=== PATIENT | male | born 1945 | race Caucasian/White ===

== ENCOUNTER → 2016-12-11 | Outpatient (CLI) | payer MEDICARE, OTHER ==
[~2016-12-11] MED LIST: ACETAMINOPHEN PO; ACETAMINOPHEN PR; ADULT TUSS100 MG/5 M GT; ALBUTEROL0.83 MG/ML IH; ANALGESIC BALM28 GM TP; ASPIRIN PO; ATIVAN GT; ATIVAN PEG; ATIVAN2 M1 GT; ATIVAN2 M1 PEG; ATIVAN2 M1 PO; AVODART0.5 MG PO; BISACODYL10 MG/SUPP PR; CALCIUM 500 MG1 TAB PO; CALCIUM 5001 TAB PEG; CALCIUM CA500 MG/5 M GT; CARAFATE PO; CARAFATE1 G PEG; CARAFATE1 G PO; CARAFATE1 GM GT; CARAFATE1 GM PO; CARDURA PO; CARDURA1 MG GT; CARDURA1 MG PEG; CARDURA1 MG PO; CENTRUM MU9 MG/15 ML PEG; CENTRUM PEG; CETIRIZINE HCL10 MG PO; CLARITIN10 MG PO; COLACE PO; COUGH SYRU100 MG/5 M PO; DIASTAT ACUDIAL1 KIT PR; DIASTAT10 MG PR; ENEMA133 M1 RC; EPSOM SALT454 GM MC; EUCERIN CREME454 GM TP; FENOFIBRATE48 MG GT; FENOFIBRATE48 MG PEG; FENOFIBRATE48 MG PO; FLUNISOLIDE25 ML; FLUNISOLIDE25 ML NS; FOSAMAX PO; FOSAMAX70 MG/75 M PEG; GABAPENTIN300 M2 GT; GABAPENTIN300 M2 PEG; GABAPENTIN300 MG GT; HEMOCYTE324 MG PEG; HEMOCYTE324 MG PO; HYDROCODON-ACE1 EAC7 PO; HYDROCODONE-APA1 T56 PEG; IMMUNO; IMMUNOTHERAPY SUBQ; IPRAT-ALBUT 0.5-3 ML IH; LAC-HYDRIN 5113 GM TP; LEXAPRO PO; LIDOCAINE PATCH; LORAZEPAM1 MG PO; MAGIC BUTT CR; METHENAMINE HIPP1 GM PEG; MEVACOR10 MG GT; MEVACOR20 M1 PEG; MEVACOR20 M1 PO; MIRALAX255 GM PEG; MONTELUKAST SOD10 MG GT; MULTI-VITAMIN1 TAB PO; MY FAVORITE MU237 ML GT; NASAL SPRAY30 M3; NASAL SPRAY30 M3 NS; NASALIDE INHALE25 ML; NEURONTIN PO; NEURONTIN300 MG PEG; NEURONTIN300 MG PO; NEURONTIN600 MG DOB; NEXIUM20 MG GT; NEXIUM20 MG/PACK GT; NORCO 5/325 TAB1 TAB PEG; NORCO1 TAB 10/3 GT; OCEAN45 ML; OYSTER CALCIUM500 MG PO; PREVACID PO; PRILOSEC PO; PRILOSEC20 MG DOB; PRILOSEC20 MG GT; PROSCAR5 MG PEG; PROVENTIL0.83 MG/ML NEB; RISAMINE OINTM113 GM TP; ROBITUSSIN100 MG/52 PEG; SENNA CONCENTR8.6 MG PEG; SENNA8.8 MG/5 M GT; SENNA8.8 MG/5 M PEG; SINGULAIR PEG; SINGULAIR PO; SUDOGEST30 M1 GT; SUDOGEST30 M1 PEG; THERA-GEL251 ML TP; THERAVITE; TRICOR PEG; TYLENOL325 M1 GT; VICODIN PO; VITAMIN C500 M2 PEG; VITAMIN D1000 UNI1 PEG; VITAMIN D1000 UNIT GT; VITAMIN D31000 UNI1 PEG; VITAMIN D31000 UNIT PEG; ZYRTEC1 MG/M1 PEG; ZYRTEC10 M2 GT; ZYRTEC10 M2 PEG; [UNRECOGNIZED DRUG - OTHER] DOB; [UNRECOGNIZED DRUG - OTHER] GT; [UNRECOGNIZED DRUG - OTHER] GT
--- NOTE | ~2016-12-11 | US136 ---
[facility] A Service of [facility] & [facility] RADIOLOGY TEXT RESULTS PATIENT: VINI BYRNE LOCATION: CNIV : 43 UNIT #: [id number] AGE: [address]: Raf Alaniz MD SEX: M ORDER DR: [id number] [facility] [address] [place], [place] [address] [id number] O MR#: [id number] Acc #: [id number] NAME: VINI BYRNE : 1945 SEX: M STUDY DATE/TIME: 12/11/2016 8:42 UNIT: CNIV ROOM: STUDY DESCRIPTION: US U/L Ext Art Study [facility] Bil Attending Physician: Raf Alaniz Sr., M.D. Ordering Physician: Raf Alaniz Sr., M.D. Primary Care Physician: Raf Alaniz Sr., M.D. MEDICAL IMAGING REPORT This report is preliminary unless electronic signature is present EXAM Bilateral ankle-brachial indices. HISTORY Nonhealing leg wounds. This patient is a [facility] patient. TECHNIQUE Sequential pressures were obtained through both lower extremities. FINDINGS Ankle-brachial indices are diminished bilaterally, but more significantly on the right. Ankle-brachial index at the dorsalis pedis artery on the right is 0.85 and at the posterior tibial artery on the right is 0.76. The ankle-brachial index at the left posterior tibial artery is 0.97 and at the left dorsalis pedis artery is 0.87. Toe-brachial indices are within normal limits at 0.83 on the right and 0.94 on the left. IMPRESSION Diminished ankle-brachial indices bilaterally, more significantly on the right. Findings are suggestive of multiple levels of arterial disease. CT angiography of the abdomen and pelvis with bilateral lower extremity runoff may be helpful for additional evaluation. Dictated by... Lynnette Díaz M.D. THIS IS AN ELECTRONICALLY VERIFIED REPORT Lynnette Díaz M.D. at 12/12/2016 7:44 AM AFF/whitney [facility] A Service of [facility] & [facility] RADIOLOGY TEXT RESULTS PATIENT: VINI BYRNE LOCATION: CNIV : 43 UNIT #: [id number] AGE: [address]: Raf Alaniz MD SEX: M ORDER DR: TD: 12/11/2016 15:29 JOB #: [id number] MEDICAL IMAGING REPORT Page 1 of 1 COPY
== END | disposition home or self-care (01) ==
LOC: CNIV 08:18
DX: I73.9 Peripheral vascular disease, unspecified (principal)
CPT/HCPCS: 93922

== ENCOUNTER 2017-03-16 15:27 | Emergency (ER) | payer MEDICARE, OTHER ==
--- NOTE | ~2017-03-16 | CR72 ---
[facility] A Service of [facility] & [facility] RADIOLOGY TEXT RESULTS PATIENT: VINI BYRNE LOCATION: [facility] : 43 UNIT #: [id number] AGE: [address]: Isiah Vargas MD SEX: M ORDER DR: [id number] [facility] [address] [place], [place] [address] [id number] MR#: [id number] Acc #: [id number] NAME: VINI BYRNE : 1945 SEX: M STUDY DATE/TIME: 03/16/2017 16:00 UNIT: [facility] ROOM: STUDY DESCRIPTION: CR Chest Single View Portable Attending Physician: Isiah Vargas M.D. Ordering Physician: Isiah Vargas M.D. Primary Care Physician: Yasmeen Henry MEDICAL IMAGING REPORT This report is preliminary unless electronic signature is present EXAM Portable chest, one view, 03/16/2017. COMPARISON 04/23/2015 CLINICAL HISTORY Short of air today. FINDINGS Low lung volumes and interstitial prominence are chronic in appearance and a tracheostomy appliance is in place, but there is no consolidation, effusion or pneumothorax. Dictated by... Stewart Mckeon M.D. THIS IS AN ELECTRONICALLY VERIFIED REPORT Stewart Mckeon M.D. at 03/25/2017 10:40 AM ADALID/juliette TD: 03/17/2017 10:07 JOB #: [id number] MEDICAL IMAGING REPORT Page 1 of 1 COPY
== END 2017-03-16 17:02 | disposition home or self-care (01) ==
LOC: CED 15:27
DX: R05 Cough (principal); Z88.0 Allergy status to penicillin; Z88.1 Allergy status to other antibiotic agents; Z79.899 Other long term (current) drug therapy
CPT/HCPCS: 71010; 99283